=== PATIENT | male | born 1965 | race Caucasian/White ===

== ENCOUNTER 2017-02-17 11:08 | Emergency (ER) | payer SELFPAY ==
[~2017-02-17] VITALS: Ht 162.6 cm; Wt 51.4 kg
[~2017-02-17 11:08] MED LIST: Z.0.NO CURRENT MEDS
[2017-02-17 11:11] VITALS: BP 135/101; PULSE 90; RESP 15; TEMP 98.7; O2SAT 100
--- NOTE | 2017-02-17 11:22 | PD ---
HPI Chief Complaint: Oral / Dental Pain or Problem Time Seen by Provider: 11:22 Travel History International Travel<30 days: No Contact w/Intl Traveler<30days: No Traveled to known affect area: No History of Present Illness HPI 51-year-old male presents to the ED for evaluation of 2 day history of 7/10 left lower dental pain. Patient endorses poor dentition and chronic dental problems. He denies fever or chills, difficulty swallowing his own secretions, airway difficulties. He does not have a dentist. He treated at home with Aleve with no improvement of his symptoms. PFSH Past Medical History Diminished Hearing: No ?: Not Social History Alcohol Use: Yes (18 BEERS PER WEEK) Tobacco Use: Yes (ONE PPD) Substance Use: No Allergies-Medications (Allergen,Severity, Reaction): Coded Allergies: No Known Allergies (Verified , 02/17/17) Reported Meds & Prescriptions Reported Meds & Active Scripts Active Magic Mouthwash Adult Liq (Multi-Ingredient Mouthwash/Gargle) 120 Ml Susp 10 Ml SWISH-SWAL ACHS Each 5mL contains: Nystatin 200,000units, Diphenhydramine 4.25mg, Viscous Lidocaine 10mg, Robledo syrup 0.8 mL Penicillin V Potassium 500 Mg Tab 500 Mg PO Q8H 10 Days Ibuprofen 800 Mg Tab 800 Mg PO Q8H PRN Review of Systems Except as stated in HPI: all other systems reviewed are Neg Physical Exam Narrative GENERAL: Well-nourished, well-developed nontoxic appearing white male in no acute distress. SKIN: Warm and dry. HEAD: Normocephalic. Atraumatic. EYES: No scleral icterus. No injection or drainage. PERRLA. EOMI. ENT: [place] tympanic membranes bilaterally. Nasal mucosa is moist. Oropharynx without erythema, edema or exudate. Uvula midline. Airway patent. Floor of the mouth is soft. DENTAL: Poor dentition overall. Multiple missing and broken teeth. Teeth #21 and 22 with gum recession, dental caries. The surrounding gingiva is erythematous, tender, edematous. No fluctuance noted. NECK: Supple, trachea midline. No JVD or lymphadenopathy. CARDIOVASCULAR: Regular rate and rhythm without murmurs, gallops, or rubs. No carotid bruits. 2+ DP and radial pulses bilaterally. RESPIRATORY: Breath sounds clear and equal bilaterally. No accessory muscle use. GASTROINTESTINAL: Abdomen soft, non-tender, nondistended. + Bowel sounds MUSCULOSKELETAL: No cyanosis, or edema. Full, active range of motion. Strength 5/5. Neurovascularly intact. BACK: Nontender without obvious deformity. No CVA tenderness. Data Data Last Documented VS Vital Signs Date Time Temp Pulse Resp B/P Pulse Ox O2 Delivery O2 Flow Rate FiO2 02/17/17 11:20 16 02/17/17 11:11 98.7 90 135/101 100 MDM Medical Decision Making Medical Screen Exam Complete: Yes Emergency Medical Condition: Yes Differential Diagnosis Gingivitis versus periodontal disease versus dental caries versus dental abscess versus dentalgia versus other Narrative Course 51-year-old male presents to the ED for evaluation of 2 day history of 7/10 left lower dental pain. Patient endorses poor dentition and chronic dental problems. He denies fever or chills, difficulty swallowing his own secretions, airway difficulties. He does not have a dentist. Vitals reviewed. Physical exam reveals a nontoxic-appearing white male in no acute distress. Poor dentition overall with multiple missing or broken teeth. Teeth #21 and 22 with gum recession, dental caries. Surrounding gingiva is erythematous, tender, edematous. No fluctuance noted. No lymphadenopathy. Airway patent. Uvula midline. Patient was prescribed Pen-Vee K 500 mg 3 times a day 10 days, Magic mouthwash when necessary for dental pain, 800 mg ibuprofen 3 times a day. He was provided a list of community dental resources and instructed to follow-up with the dentist. He indicated understanding of the instructions and is agreeable to the care plan. The patient is stable and discharged home. Diagnosis Primary Impression: Dentalgia Additional Impressions: Gingival and periodontal disease Dental abscess Dental caries Referrals: Dentist Patient Instructions: Dental Abscess (ED), General Instructions Additional Instructions: Rest, hydrate. Take all antibiotics as prescribed, even if your symptoms resolve. 800 milligram ibuprofen 3 times a day for pain and inflammation. Magic mouthwash as needed for dental pain. Follow-up with the dentist. Return to the ED for any urgent or emergent medical condition. Med/Other Pt SpecificInfo: Prescription(s) given Scripts Stmpepov-Gcikyfierpxshgz-Xrqackikm Liq (Magic Mouthwash Adult Liq)120 Ml Susp10 Ml SWISH-SWAL ACHS #120 ML Ref 0 Each 5mL contains: Nystatin 200,000units, Diphenhydramine 4.25mg, Viscous Lidocaine 10mg, Robledo syrup 0.8 mL Prov:Donna Fabian MD 02/17/17 Penicillin V Potassium 500 Mg [id number] Mg PO Q8H 10 Days Ref 0 Prov:Donna Fabian MD 02/17/17 Ibuprofen 800 Mg [id number] Mg PO Q8H PRN (Pain/Inflammation) #15 TAB Ref 0 Prov:Donna Fabian MD 02/17/17 Disposition: 01 DISCHARGE HOME Condition: Stable Chyna Patel Feb 17, 2017 11:22
[2017-02-17] MEDS ORDERED: IBUP800T23 PO (11:30)
[2017-02-17] MEDS ORDERED: PENI500T PO (11:30)
[2017-02-17] MEDS ORDERED: MAGICADU2 SWISH-SWAL (11:30)
== END 2017-02-17 12:16 | disposition home or self-care (01) ==
LOC: PHEFT 11:08
DX: K08.89 Other specified disorders of teeth and supporting structures (principal); K05.6 Periodontal disease, unspecified; K06.9 Disorder of gingiva and edentulous alveolar ridge, unspecified; K04.7 Periapical abscess without sinus; K02.9 Dental caries, unspecified; F17.200 Nicotine dependence, unspecified, uncomplicated
CPT/HCPCS: 99282